=== PATIENT | male | born 1955 | race Caucasian/White ===

== ENCOUNTER 2017-04-01 15:29 | Outpatient (CLI) ==
[2016-04-01 09:47] VITALS: BMI 26.6
--- NOTE | 2017-04-01 16:00 | DI ---
EXAM: Chest two view, frontal and lateral views. HISTORY: Cough. COMPARISON: 04/01/2016. FINDINGS: The heart size is normal. Atherosclerotic calcifications are present. There is no pulmo nary vascular congestion. The lungs are clear although it should be noted that the medial lung apic es and posterior lung bases are not well evaluated. No pleural effusion or pneumothorax is seen. N o acute osseous abnormality identified. IMPRESSION: No acute cardiopulmonary process.
--- NOTE | 2017-04-01 16:03 | DI ---
EXAM: Right hand two views HISTORY: Hand edema. 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 There is a chronic ulnar avulsion fracture of the styloid. No definite acute abnormality. Soft tissues reveal no obvious gas collection or radiopaque foreign body IMPRESSION: No acute findings.
== END 2017-04-01 15:30 | disposition home or self-care (01) ==
LOC: RAD 15:29
PROVIDERS: ATTEND Physician Assistant
DX: R60.0 Localized edema (principal); R05 Cough

== ENCOUNTER 2017-05-27 14:04 | Emergency (ER) ==
[2017-05-27 14:11] VITALS: BP 141/92; TEMP 98.7; BMI 23.3
--- NOTE | 2017-05-27 14:58 | CT ---
EXAM: CT Head HISTORY: Fall COMPARISON: 02/23/2014 TECHNIQUE: CT head performed without contrast FINDINGS: There is no mass effect, midline shift, or intracranial hemmorhage. Morejon white different iation is preserved. There is no extra-axial collection. The ventricles, sulci, and basal cisterns are patent and symmetric. There is chronic ischemic disease of the white matter and cerebral volum e loss. Chronic-appearing bilateral lacunar infarctions, some of which appear new from 2014. There i s no depressed calvarial fracture. Stable metallic density along the inner table of the right parie gianluca skull. Stable collapsed and calcified left globe. The mastoid air cells are clear. Polypoid muc osal thickening left maxillary sinus, likely mucous retention cyst. There are intracranial atheroscl erotic calcifications. IMPRESSION: 1. No acute intracranial abnormality. 2. Chronic ischemic disease of the white matter and cerebral volume loss. Chronic-appearing bilater al lacunar infarctions.
--- NOTE | 2017-05-27 15:10 | CT ---
EXAM: CT facial bones without contrast HISTORY: Fall COMPARISON: None TECHNIQUE: CT facial bones performed without intravenous contrast. Coronal and sagittal reformatte d images obtained. FINDINGS: Mastoid air cells clear. Temporal mandibular joints normally aligned. Mandible is intac t. Zygomatic maxillary complexes intact. Orbital spencer intact. No facial bone fracture. There is leftward deviation nasal septum with small leftward projecting septal spur. Right-sided sally bullo sa.. Polypoid mucosal thickening left maxillary sinus, likely mucous retention cyst. Left lobe federico apsed and calcified. Several areas of periapical lucency surrounding maxillary and mandibular teeth , likely periodontal disease. IMPRESSION: 1. No facial bone fracture. 2. Several areas of periapical lucency surrounding maxillary and mandibular teeth, likely periodont al disease. Recommend correlation with dental examination
--- NOTE | 2017-05-27 15:30 | CT ---
Exam: CT of the cervical spine without intravenous contrast. Comparison: None available. Reason for exam: Fall. FINDINGS: No acute fracture or listhesis. There is moderate to severe multilevel degenerative dise ase with osteophyte formation, intervertebral body disc space height loss, exaggeration of the cervi genevieve kyphosis. Evaluation of the prevertebral soft tissues is limited by positioning. The dens is intact. Impression: No obvious fracture or listhesis in the cervical spine with multilevel severe degenerative disease t hat appears more advanced than expected for patient's stated age. If clinical concern exists for rad iculopathy, myelopathy, or soft tissue injury, MRI may be performed. Report faxed at [phone] hours on 05/27/2017.
--- NOTE | 2017-05-27 15:32 | ED.PDOC ---
General ED Provider: Dr. MATTHIAS PARK-ER Chief Complaint: Fall Stated Complaint: he fell over a wheelchair..hurt his head Time Seen by Physician: 14:10 Mode of Arrival: Wheelchair Information Source: Assisted Living Exam Limitations: Clinical condition Primary Care Provider: FRANCES CASTAÑEDA Nursing and Triage Documentation Reviewed and Agree: Yes Trauma/Injury Complaint Exam - Facial Injury Complaint/Exam Location of Pain: Reports: Left, Eyebrow Mechanism of Injury: Reports: Trauma Onset/Duration: one hour Symptoms Are: Still present Onset of Pain: Reports: Immediate Initial Severity: Mild Current Severity: Mild Location: Reports: Discrete (left eyebrow) Character: Reports: Dull, Aching Alleviating: Reports: None Aggravating: Reports: None Associated Signs and Symptoms: Reports: Swelling, Bruising. Denies: Redness, Numbness, Tingling, Fever, Polymyalgia, Weight loss, Visual defects, Tinnitus, Headache, Loss of consciousness Related Surgical History: Reports: None Facial Findings: Present: Swelling, Ecchymosis, Laceration Differential Diagnoses: Abrasion, Contusion, Fracture, Laceration Review of Systems - Review Of Systems Constitutional: Reports: No symptoms Eyes: Reports: No symptoms Ears, Nose, Mouth, Throat: Reports: No symptoms Respiratory: Reports: No symptoms Cardiac: Reports: No symptoms GI: Reports: No symptoms : Reports: No symptoms Musculoskeletal: Reports: No symptoms Skin: Reports: No symptoms Neurological: Reports: Headache Endocrine: Reports: No symptoms Hematologic/Lymphatic: Reports: No symptoms All Other Systems: Reviewed and Negative Past Medical History - Past Medical History Previously Healthy: Yes Endocrine: Reports: Dyslipidemia Cardiovascular: Reports: Hypertension Respiratory: Reports: None Hematological: Reports: Anemia Gastrointestinal: Reports: None Genitourinary: Reports: None Neuro/Psych: Reports: Seizure Musculoskeletal: Reports: None Cancer: Reports: None Other Pertinent Past Medical History: Profound MR, PICA DISORDER, CHRONIC HYPONATREMIA,LEFT HIP FX, - Surgical History General Surgical History: Reports: Orthopedic (LEFT HIP FX,) - Family History Family History: Reports: Unknown - Social History Smoking Status: Never smoker Hx Substance Use: No Alcohol Screening: None Lives: With family - Immunizations Tetanus Shot up to Date: (2009) Physical Exam - Physical Exam Appearance: Well-appearing, No pain distress, Well-nourished Pain Distress: Mild Eyes: CODY, EOMI, Conjunctiva clear ENT: Ears normal, Nose normal, Oropharynx normal Neck: Supple Respiratory: Airway patent, Breath sounds clear, Breath sounds equal, Respirations nonlabored Cardiovascular: RRR, Pulses normal, No rub, No murmur GI/: Soft, Nontender, No masses, Bowel sounds normal, No Organomegaly Musculoskeletal: Normal strength, ROM intact, No edema, No calf tenderness Skin: Warm, Dry, Normal color Neurological: Sensation intact, Motor intact, Reflexes intact, Cranial nerves intact, Alert, Oriented Psychiatric: Affect appropriate, Mood appropriate Interpretation - Radiology Interpretation Radiology Interpretation By: Radiologist Radiology Results: Negative Exam Interpreted: CT Scan Procedures - Laceration/Wound Repair No standard instances Wound Description: Linear Wound Length (cm): .5cm above left eyebrow Wound Explored: Clean Wound Irrigated: No Wound Prep: Hibiclens Wound Repaired With: Steri-strips Layer Closure?: No Sterile Dressing Applied?: Yes Splint Applied?: No Sling Applied?: No Critical Care Note - Critical Care Note Total Time (mins): 0 Course - Course Orders, Labs, Meds: Orders Category Date Time Status CT CERVICAL SPINE W/O CONTRAST Stat RADS 05/27/17 14:[address] HEAD W/O CONTRAST Stat RADS 05/27/17 14:[address] MAXILLOFACIAL W/O CONTRAST Stat RADS 05/27/17 14:12 Completed Vital Signs: Temp Pulse Resp BP Pulse Ox 05/27/17 14:05 98.7 F 99 H 20 141/92 H 97 Departure - Departure Time of Disposition: 15:33 Disposition: HOME SELF-CARE Discharge Problem: Fall Qualifiers: Encounter type: initial encounter Qualifier Code: (W19.XXXA) Unspecified fall, initial encounter Laceration of forehead without complication Qualifiers: Encounter type: initial encounter Qualifier Code: (S01.81XA) Laceration without foreign body of other part of head, initial encounter Instructions: Laceration (ED) Condition: Good Pt referred to PMD for follow-up: Yes Additional Instructions: keep w0und clean and dry--return if any prblems Allergies/Adverse Reactions: Allergies diphenhydramine HCl [From Benadryl] Adverse Reaction (Verified 05/27/17 14:13) Home Medications: Ambulatory Orders Atorvastatin Calcium 10 mg PO DAILY 11/06/13 Lorazepam 1 mg PO QID 11/06/13 Omeprazole [Prilosec] 20 mg PO DAILY 11/06/13 Potassium Chloride [Klor-Con] 20 meq PO DAILY 11/06/13 Acetaminophen [Tylenol] 650 mg PO Q3-4H PRN 02/23/14 Polyethylene Glycol 3350 [Miralax] 17 gm PO DAILY 02/23/14 Vit C/Ascorbate Ca/Ascorb Sod [Vitamin C 500 mg/15 ml Liquid] 1,000 mg PO BS 01/07 Aripiprazole [Abilify] 15 mg PO DAILY 06/10/14 Guaifenesin [Robitussin Plain Syrup] 5 ml PO Q8H PRN 06/10/14 Loratadine 10 mg PO DAILY 06/10/14 Ferrous Sulfate 325 mg PO TID 05/27/17 Tamsulosin HCl [Flomax] 0.4 mg PO DAILY 05/27/17 Disposition Discussed With: Patient, Other (attendant)
== END 2017-05-27 15:40 | disposition home or self-care (01) ==
LOC: ED 14:04
DX: S01.112A Laceration without foreign body of left eyelid and periocular area, initial encounter (principal); S00.83XA Contusion of other part of head, initial encounter; W01.0XXA Fall on same level from slipping, tripping and stumbling without subsequent striking against object, initial encounter
CPT/HCPCS: 99283

== ENCOUNTER 2017-07-17 09:41 | Outpatient (CLI) | payer OTHER | END 2017-07-17 09:42 | disposition home or self-care (01) | LOC: CAR 09:41 | PROVIDERS: ATTEND Physician Assistant | DX: Z79.899 Other long term (current) drug therapy (principal) | CPT/HCPCS: 93005; 93010 ==

== ENCOUNTER 2017-10-25 08:41 | Emergency (ER) ==
[2017-10-25 08:44] VITALS: BP 114/78; TEMP 96.7
--- NOTE | 2017-10-25 08:50 | ED.PDOC ---
General ED Provider: Dr. AUNSHA RIOJAS Chief Complaint: Hand Pain/Injury Stated Complaint: Patient is a 62 year old resident [facility] who was witnessed falling onto the cough yesterday. Has been up and about but complains of left hand pain on the 2nd and 3rd finger. No other injuries. Time Seen by Physician: 08:56 Mode of Arrival: Walk-In Information Source: Patient Nursing and Triage Documentation Reviewed and Agree: Yes Musculoskeletal Complaint Exam - Hand/Wrist Complaint/Exam Location of Pain: Reports: Left, Digit #2, Digit #3 Mechanism of Injury: Reports: Trauma Onset/Duration: 1 day Symptoms Are: Still present Onset of Pain: Reports: Immediate Initial Severity: Moderate Current Severity: Moderate Location: Reports: Diffuse Character: Reports: Unable to describe Alleviating: Reports: OTC meds (give tylenol this mroning and is much more comfortable ) Aggravating: Reports: Movement Associated Signs and Symptoms: Reports: Swelling, Redness Dominant Hand: Right Related Surgical History: Reports: None Hand/Wrist Findings: Present: Swelling Tenderness: Present: Phalanx Compartment Syndrome Risk Factors: Present: Pain. Absent: Paralysis, Pallor, Pulselessness, Paresthesias Hand Picture: 1 - swelling and painful Differential Diagnoses: Closed Fracture, Sprain, Strain, Tendonitis, Tenosynovitis Review of Systems - Review Of Systems Constitutional: Reports: No symptoms Musculoskeletal: Reports: Joint pain, Joint swelling (2nd and 3rd finger) All Other Systems: Other (limited due to being non verble.) Past Medical History - Past Medical History Previously Healthy: Yes Endocrine: Reports: Dyslipidemia Cardiovascular: Reports: Hypertension Respiratory: Reports: None Hematological: Reports: Anemia Gastrointestinal: Reports: None Genitourinary: Reports: None Neuro/Psych: Reports: Seizure Musculoskeletal: Reports: None Cancer: Reports: None Other Pertinent Past Medical History: Profound MR, PICA DISORDER, CHRONIC HYPONATREMIA,LEFT HIP FX, - Surgical History General Surgical History: Reports: Orthopedic (LEFT HIP FX,) - Family History Family History: Reports: Unknown - Social History Smoking Status: Never smoker Hx Substance Use: No Alcohol Screening: None - Immunizations Tetanus Shot up to Date: No Physical Exam - Physical Exam Appearance: Well-appearing Ill-appearing: None Pain Distress: None Neck: Supple Respiratory: Airway patent, Breath sounds clear, Breath sounds equal, Respirations nonlabored Cardiovascular: RRR, Pulses normal, No rub, No murmur GI/: Soft, Nontender, No masses, Bowel sounds normal, No Organomegaly Musculoskeletal: Normal strength, No calf tenderness, Edema (2nd and 3rd finger swelling ) Skin: Warm, Dry, Normal color Neurological: Sensation intact, Motor intact, Reflexes intact, Cranial nerves intact, Alert, Oriented Psychiatric: Affect appropriate Interpretation - Radiology Interpretation Radiology Interpretation By: Radiologist Radiology Results: Negative Exam Interpreted: Other (Left 2nd and 3rd finger x ray negative for fracture) Critical Care Note - Critical Care Note Total Time (mins): 0 Course - Course Orders, Labs, Meds: Orders Category Date Time Status FINGER(S), LEFT MIN 2V Stat RADS 10/25/17 08:54 Completed Vital Signs: Temp Pulse Resp BP Pulse Ox 10/25/17 08:41 96.7 F L 90 18 114/78 97 Departure - Departure Time of Disposition: 09:42 Disposition: HOME SELF-CARE Discharge Problem: Finger contusion Qualifiers: Encounter type: initial encounter Finger: middle finger Damage to nail status: without damage Laterality: left Qualified Code(s): S60.032A - Contusion of left middle finger without damage to nail, initial encounter Instructions: Jammed Finger (ED) Condition: Fair Pt referred to PMD for follow-up: Yes Allergies/Adverse Reactions: Allergies diphenhydramine HCl [From Benadryl] Adverse Reaction (Verified 10/25/17 08:44) Home Medications: Ambulatory Orders Atorvastatin Calcium 10 mg PO DAILY 11/06/13 Lorazepam 1 mg PO QID 11/06/13 Omeprazole [Prilosec] 20 mg PO DAILY 11/06/13 Potassium Chloride [Klor-Con] 20 meq PO DAILY 11/06/13 Acetaminophen [Tylenol] 650 mg PO Q3-4H PRN 02/23/14 Polyethylene Glycol 3350 [Miralax] 17 gm PO DAILY 02/23/14 Vit C/Ascorbate Calcium,Sodium [Vitamin C 500 mg/15 ml Liquid] 1,000 mg PO BS Aripiprazole [Abilify] 15 mg PO DAILY 06/10/14 Guaifenesin [Robitussin Plain Syrup] 5 ml PO Q8H PRN 06/10/14 Loratadine 10 mg PO DAILY 06/10/14 Ferrous Sulfate 325 mg PO TID 05/27/17 Tamsulosin HCl [Flomax] 0.4 mg PO DAILY 05/27/17 Transfer Form Completed: Yes
--- NOTE | 2017-10-25 09:28 | DI ---
EXAM: Four view left hand COMPARISON: Left hand series from 04/01/2017 HISTORY: Trauma and pain FINDINGS: There is no acute fracture or dislocation. Alignment is anatomic. Joint spaces are well p reserved. There is mild degenerative change. There is no soft tissue swelling. No unexpected radio-op aque foreign bodies. There is a chronic chip fracture of the base of the proximal phalanx of the left fifth finger seen on the radial aspect. There is an old ulnar styloid fracture as well. IMPRESSION: 1. No acute fracture is identified. 2. Chronic fractures of the ulnar styloid and the left fifth finger.
== END 2017-10-25 09:51 | disposition home or self-care (01) ==
LOC: ED 08:41
DX: S60.032A Contusion of left middle finger without damage to nail, initial encounter (principal); W19.XXXA Unspecified fall, initial encounter
CPT/HCPCS: 99283

== ENCOUNTER 2018-03-17 23:09 | Emergency (ER) ==
[2018-03-17 23:23] VITALS: BP 132/88; TEMP 97; BMI 24.1
[2018-03-17] MEDS ORDERED: TYLENOL PO STA (23:26)
--- NOTE | 2018-03-17 23:29 | ED.PDOC ---
General ED Provider: Dr. NICHOLE LUEVANO Chief Complaint: Fall Stated Complaint: Lives at [facility], fell and injured right hip, c/o of pain to walk, worker is with him Time Seen by Physician: 23:26 Mode of Arrival: Walk-In Information Source: Nurse Primary Care Provider: FRANCES CASTAÑEDA Nursing and Triage Documentation Reviewed and Agree: Yes Reviewed sepsis parameters & appropriate labs ordered?: No System Inflammatory Response Syndrome: Not Applicable Sepsis Protocol: For patient's 13 years and over: Temp is 96.8 and below OR 101 and greater Pulse >90 BPM Resp >20/minute Acutely Altered Mental Status Are patient's symptoms suggestive of a new infection, such as: -Pneumonia -Skin, Soft Tissue -Endocarditis -UTI -Bone, Joint Infection -Implantable Device -Acute Abdominal Infection -Wound Infection -Meningitis -Blood Stream Catheter Infection -Unknown Musculoskeletal Complaint Exam - Hip/Pelvis Complaint/Exam Location of Pain: Reports: Right, Hip Mechanism of Injury: Reports: Trauma Symptoms Are: Still present Initial Severity: Moderate Current Severity: Moderate Location: Reports: Discrete Character: Reports: Dull, Aching Aggravating: Reports: Movement, Weight bearing Alleviating: Reports: None Associated Signs and Symptoms: Denies: Swelling, Redness, Bruising, Fever, Weakness, Dizziness, Syncope, Abdominal pain, Knee pain Able to Bear Weight: No Septic Arthritis Risk Factors: Reports: None Related Surgical History: Reports: None Tenderness: Present: Right, Greater Trochanter Range of Motion Limited In: Present: Flexion, Extension, Abduction NV Bundle Intact Distal to Injury: No Differential Diagnoses: Fracture, Sprain Review of Systems - Review Of Systems Constitutional: Reports: No symptoms Eyes: Reports: No symptoms Ears, Nose, Mouth, Throat: Reports: No symptoms Respiratory: Reports: No symptoms Cardiac: Reports: No symptoms GI: Reports: No symptoms : Reports: No symptoms Musculoskeletal: Reports: Joint pain, Muscle pain Skin: Reports: No symptoms Neurological: Reports: No symptoms Endocrine: Reports: No symptoms Hematologic/Lymphatic: Reports: No symptoms All Other Systems: Reviewed and Negative Past Medical History - Past Medical History Previously Healthy: Yes Endocrine: Reports: Dyslipidemia Cardiovascular: Reports: Hypertension Respiratory: Reports: None Hematological: Reports: Anemia Gastrointestinal: Reports: None Genitourinary: Reports: None Neuro/Psych: Reports: Seizure Musculoskeletal: Reports: None Cancer: Reports: None Other Pertinent Past Medical History: Profound MR, PICA DISORDER, CHRONIC HYPONATREMIA,LEFT HIP FX, - Surgical History General Surgical History: Reports: Orthopedic (LEFT HIP FX,) - Family History Family History: Reports: Unknown - Social History Smoking Status: Never smoker Hx Substance Use: No Alcohol Screening: None - Immunizations Tetanus Shot up to Date: No (unsure) Physical Exam - Physical Exam Appearance: Well-appearing, Well-nourished Pain Distress: Moderate Eyes: CODY, EOMI, Conjunctiva clear ENT: Ears normal, Nose normal, Oropharynx normal Respiratory: Airway patent, Breath sounds clear, Breath sounds equal, Respirations nonlabored Cardiovascular: RRR, Pulses normal, No rub, No murmur GI/: Soft, Nontender, No masses, Bowel sounds normal, No Organomegaly Musculoskeletal: No edema, No calf tenderness, Limited ROM, Limited strength Skin: Warm, Dry, Normal color Neurological: Sensation intact, Motor intact, Reflexes intact, Cranial nerves intact, Alert, Oriented Psychiatric: Affect appropriate, Mood appropriate Interpretation - Radiology Interpretation Radiology Interpretation By: Radiologist Radiology Results: Negative Critical Care Note - Critical Care Note Total Time (mins): 20 Course - Course Orders, Labs, Meds: Orders Category Date Time Status Acetaminophen [Tylenol] MEDS 03/17/18 23:26 Discontinued 500 mg PO ONCE STA HIP, RIGHT 2 VIEWS Stat RADS 03/17/18 23:26 Completed PELVIS 1 OR 2 VIEWS Stat RADS 03/17/18 23:26 Completed Medications Discontinued Medications Generic Name Dose Route Start Last Admin Trade Name Freq PRN Reason Stop Dose Admin Acetaminophen 500 mg 03/17/18 23:26 03/17/18 23:40 Tylenol PO 03/17/18 23:27 500 mg ONCE STA Administration Vital Signs: Temp Pulse Resp BP Pulse Ox 03/17/18 23:15 97 F L 80 18 132/88 96 Departure - Departure Time of Disposition: 23:50 Disposition: HOME SELF-CARE Discharge Problem: Hip pain Qualifiers: Laterality: right Qualified Code(s): M25.551 - Pain in right hip Instructions: Fall Prevention for Older Adults (ED) Condition: Stable Pt referred to PMD for follow-up: Yes IPMP verified?: No Additional Instructions: Fall risk discussed Tylenol prn If not better needs further evaluation Allergies/Adverse Reactions: Allergies diphenhydramine HCl [From Benadryl] Adverse Reaction (Verified 03/17/18 23:10) Home Medications: Ambulatory Orders Atorvastatin Calcium 10 mg PO BEDTIME 11/06/13 Lorazepam 1 mg PO QID 11/06/13 Omeprazole [Prilosec] 20 mg PO BS 11/06/13 Potassium Chloride [Klor-Con] 20 meq PO DAILY 11/06/13 Acetaminophen [Tylenol] 650 mg PO Q4H PRN 02/23/14 Polyethylene Glycol 3350 [Miralax] 17 gm PO Q72HR PRN 02/23/14 Vit C/Ascorbate Calcium,Sodium [Vitamin C 500 mg/15 ml Liquid] 1,000 mg PO BS Aripiprazole [Abilify] 10 mg PO DAILY 06/10/14 Guaifenesin [Robitussin Plain Syrup] 5 ml PO Q8H PRN 06/10/14 Loratadine 10 mg PO DAILY 06/10/14 Ferrous Sulfate 325 mg PO TID 05/27/17 Fluvoxamine Maleate 25 mg PO DAILY 03/18/18 Metronidazole/Skin Cleanser 23 [Rosadan 0.75% Gel Kit] 1 each TP BID 03/18/18 Triamcinolone Acetonide [Triamcinolone Acetonide 0.5% Ointment] 1 applic TP BID 03/18/18 Disposition Discussed With: Patient
--- NOTE | 2018-03-17 23:53 | DI ---
EXAM: Pelvis, single view 03/17/2018 HISTORY: Fall. Injury pain COMPARISON: 03/17/2018 FINDINGS / IMPRESSION: Left hip arthroplasty appears well positioned. The right hip aligns normally. The bony pelvis appears intact. No acute post traumatic osseous abnormality.
--- NOTE | 2018-03-17 23:54 | DI ---
EXAM: Right hip, two views, 03/17/2018 HISTORY: Fall with pain COMPARISON: None. FINDINGS / IMPRESSION: The visualized osseous structures appear intact. Anatomic alignment appears within normal limits. There is no evidence of fracture or dislocation. No acute osseous abnormality.
== END 2018-03-18 00:16 | disposition home or self-care (01) ==
LOC: ED 23:09
DX: M25.551 Pain in right hip (principal); W19.XXXA Unspecified fall, initial encounter
CPT/HCPCS: 99282

== ENCOUNTER 2018-04-17 07:58 | Outpatient (CLI) | payer OTHER ==
--- NOTE | 2018-04-17 09:18 | DI ---
EXAM: Single contrast esophagram. History: Dysphagia. Technique: Patient was given oral barium in multiple spot films of the esophagus and gastroesophagea l junction were obtained in various projections. Findings: Limited examination due to patient condition. No obvious mucosal lesions or filling defects identified. Gastroesophageal junction is patent. No e xtravasation of contrast material. No obvious hiatal hernia. Impression: Limited examination with no obvious acute or significant findings.
== END 2018-04-17 07:59 | disposition home or self-care (01) ==
LOC: RAD 07:58
PROVIDERS: ATTEND Physician Assistant
DX: R13.10 Dysphagia, unspecified (principal)

== ENCOUNTER 2018-05-04 08:44 | Outpatient (CLI) ==
--- NOTE | 2018-05-04 09:53 | DI ---
EXAM: Modified barium swallow HISTORY: Dysphagia. Technique: Lateral video fluoroscopy was performed in conjunction with speech therapy using multiple consistencies to evaluate swallowing function. Findings / impression: Degenerative changes of the cervical spine. Penetration and aspiration (with cough) was observed with thin liquids and nectar and probably honey. Please see dedicated speech pa thology report for additional details.
--- NOTE | 2018-05-04 11:56 | RS.MODBRM ---
Subjective Number of treatment sessions: 1 Date of Evaluation: 05/04/18 Date of Onset/Injury/Change in Status: 02/21/18 (Reports reguritating liquids frequently over past few months) Treatment Diagnosis: Dysphagia Current Level of Function: This 62 year old male was referred for a modified barium swallow study due to regurgiation with liquids. Pt has a hx of Verdugo's esophagus since 2010. Caregiver reported he feeds himself independently and consumed thin liquids with mechanical soft. Approximately three months ago, he began regurgitating liquids post meals consistently. He was referred for a Barium swallow, which had no remarkable observations. The MD downgraded his liquids to nectar thick. Currently, the patient demonstrates a risk for aspiration/penetration with PO intake. Current Diet: Mechanical soft diet texture with nectar thick liquids. Current Subjective/complaints:: The caregiver was present for the dysphagia study and provided all medical information. The patient is non-verbal and communicates minimally with gestrures and some vocalizations. The caregiver reported the patient is impulsive with drinking liquids. She attributes this as a behavior vs a need to satisfy his thirst. She reported when he is administered liquids he takes a long consecutive drink and drinks all the liquids at one time. She stated after drinking all his liquids, he then regurgitates only the liquids. To reduce his impulsivity wit drinking, swallow strategies have been utilized, however the patient is not always compliant with the safe swallow recommendations. When asked about his food, she stated he has no difficulty and demonstrates less impulsive eating patterns. Medical History Comments:: Hyperlipidemia, Hyponatremia, anxiety dx, Pica, intellectual fucntioning disability, Allergies, eczema, alterned bowel function. Reported Verdugo's esophagus from caregiver, however was not listed in medical list from MD office. Hx Home Medications: Medications listed may not affect swallow function. Patient's Goals: Pt's caregivers want pt to have the safest and least restrictive diet texture. To reduce regurgitation post meals. Food Presented Thin Liquid: cup (Two trials of thin liquids via controlled open cup. 1st trial with residuals in valleculae, moderate swallow delay, poor epiglottic inversion and laryngeal elevation, adequate lingual pressure. 2nd trial larger bolus presented and pt with deep penetration pre-swallow and aspiration during the swallow. Responded with hard over cough-non productive to produce barium.) Ryder Liquid: cup (Via open cup non-controlled. Pt took large consecutive drinks. Liquids feel to valleculae with moderate swallow delay. Penetration to level of VF on first swallow with moderate resiude in vallecular space. Aspiration occured continually on consecutive drinks. ) Honey Liquid: cup (Open cup controlled drinks via [employer]. Fell to BOT with mild swallow delay. Two swallows to clear texture with flash penetration on second swallow. ) Cubed Soft Fruit: 1/2 teaspoon (Adequate mastication without aspiration/ penetration.) Oral Phase - Oral Phase Labial Closure: WFL Bolus Formation: WFL Mastication: WFL Lingual Movement: Mild Impairment A/P Propulsion: Mild Impairment Premature Vallecular Pooling: Moderate Oral Residue: Coating Comments:: Oral phase WFL. Pt has some weakness with tongue movement and coordination allowing bolus to travel past facial pillars prior to initation of swallow response. Pharyngeal Phase Pharyngeal Response: Moderate Impairment Base of Tongue: Moderate Impairment Epiglottic Movement: Moderate Impairment Laryngeal Excursion: Moderate Impairment Vallecular Residue: Moderate Pyriform Residue: Mild Comments:: Moderate deficits with pharyngeal phase. Weak BOT with poor control of bolus. Prior to swallow initiation bolus falls to valleculae and over tip of valleculae. When swallow initiation completed, moderate vallecular residue increases risks for aspiration on residuals. Summary and Recommendations - Recommendations PO Diet: Mechanical Soft, Honey-Thick Liquids Comments:: Pt presents with moderate oropharyngeal dysphagia as characterized by weak pharyngeal phase and impulsive behaviors. Pt had deep penetration and aspiration on thin liquids and nectar thick liquids. Pt demonstrated functional mastication and deglutition with mechanical soft diet texture. Functional Reporting G Codes: Swallowing current CL Goal CL Severity Impairment Rationale: Mechanical soft diet texture with honey-thick liquids. Plan Duration of Treatment: One Time Treatment Anticipated Discharge Destination: Assisted Living Facility Comments: Pt aspirates thin liquids and nectar thick liquids.Pt does demonstrate overt coughing when aspiration occurs. [employer] recommends liquid downgrade to honey thick liquids and continue mechanical soft diet texture. Safe swallow precautions with all meals. Monitor for dehydration. Complete oral care 2x a day. Reduce impulsive drinking with presentation of 1.5 oz of liquids and refill as requested. Assist with pacing with drinking and eating. Use GERD precautions and sit upright atleast 60 minutes post meals. - Treatment Code (1) Oropharyngeal dysphagia Code(s): R13.12 - DYSPHAGIA, OROPHARYNGEAL PHASE
== END 2018-05-04 08:45 | disposition home or self-care (01) ==
LOC: RAD 08:44
PROVIDERS: ATTEND Physician Assistant
DX: R13.10 Dysphagia, unspecified (principal)